=== PATIENT | female | born 1935 | race Caucasian/White ===

== ENCOUNTER 2017-01-07 17:09 | Inpatient (IN) | payer OTHER, MEDICAID ==
[~2017-01-07] VITALS: Ht 152.4 cm; Wt 47.6 kg
[~2017-01-07 17:09] MED LIST: ASPI-1063 PO; COLL30OI2 TP; DOCU250C PO; HYDR-4039 PO; MEGE400O PO; SENN-153 PO
[2017-01-07 17:12] VITALS: BP_SYST 154
[2017-01-07 18:25] LABS: HEMATOCRIT 27.2 % (36-48); HEMOGLOBIN 8.9 g/dL (12.0-16.0); MEAN CORPUSCULAR HEMOGLOBIN 33 pg (27-31); MEAN CORPUSCULAR HGB CONC 33 % (32-36); MEAN CORPUSCULAR VOLUME 102 fL (79.0-98.0); PLATELET COUNT (AUTO) 197 K/uL (130-430); RED BLOOD CELL COUNT(AUTO) 2.66 MIL/uL (4.2-6.2); RED CELL DISTRIBUTION WIDTH 15.6 % (9.0-15.0); WHITE BLOOD COUNT (AUTO) 19.7 K/uL (4.8-10.8)
[2017-01-07 18:37] LABS: ANION GAP 15 (5-15); CALCIUM 10.3 mg/dL (8.4-11.0); CHLORIDE 95 mmol/L (98-107); GLUCOSE 309 mg/dL (70-99); SODIUM SERUM 132 mmol/L (136-145); UREA NITROGEN, BLOOD 77 mg/dL (8-21)
[2017-01-07 18:39] LABS: INR 1.3 (0.8-1.2); PROTHROMBIN TIME 13.7 SECS (9.5-12.5)
[2017-01-07 18:42] LABS: ALANINE AMINOTRANSFERASE 20 U/L (12-78); ALBUMIN 2.5 g/dL (3.4-4.8); ASPARTATE AMINOTRANSFERASE 26 U/L (10-37); TOTAL BILIRUBIN 0.5 mg/dL (0.0-1.0)
[2017-01-07] MEDS ORDERED: cefTRIAXone 1 GM IVPB PREMIX 50 ML IV ONE (18:45)
[2017-01-07] MEDS ORDERED: KETOROLAC TROMETHAMINE 15 MG VIAL IVP ONE (18:45)
[2017-01-07 19:03] LABS: BILIRUBIN,URINE NEGATIVE (NEGATIVE); BLOOD, URINE 2+ (NEGATIVE); CLARITY/URINE CLOUDY (CLEAR); COLOR,URINE YELLOW (YELLOW); GLUCOSE,URINE 3+ (NEGATIVE); KETONES,URINE NEGATIVE (NEGATIVE); LEUKOCYTE ESTERASE ,URINE 2+ (NEGATIVE); NITRITE, URINE NEGATIVE (NEGATIVE); PH,URINE 7.5 (5.0-8.0); PROTEIN URINE 3+ (NEGATIVE); UROBILINOGEN,URINE 0.2 (0.2-1.0)
[2017-01-07 19:24] LABS: BAND % (MANUAL) 2 % (0-6); BASOPHILS % (MANUAL) 0 % (0-2); EOSINOPHILS % (MANUAL) 0 % (0-7); LYMPHOCYTES % (MANUAL) 5 % (20-46); MONOCYTES % (MANUAL) 5 % (0-11)
[2017-01-07] MEDS ORDERED: INSULIN ASPART 100 UNITS/ML, 10 ML VIAL SUBCUT ONE (19:45)
[2017-01-07 19:51] LABS: BACTERIA,URINE MANY /HPF (None Seen); WBC,URINE >100 /HPF (0-3)
[2017-01-07 19:52] LABS: MUCUS,URINE None Seen /LPF (None Seen)
[2017-01-07 21:16] VITALS: BP_SYST 161
[2017-01-07 21:18] VITALS: BP_SYST 161
[2017-01-07] MEDS: DOCUSATE SODIUM 250 MG CAPSULE PO SCH (21:45)
[2017-01-07] MEDS: SENNOSIDES 8.6 MG TABLET PO SCH (21:45)
[2017-01-07] MEDS: hydrALAZINE HCL 25 MG TABLET PO SCH (21:45)
[2017-01-07] MEDS: INSULIN ASPART 100 UNITS/ML, 10 ML VIAL (NovoLOG) SUBCUT PRN (22:04)
[2017-01-08] VITALS: BP_SYST 137
[2017-01-08 04:00] VITALS: BP_SYST 149
[2017-01-08] MEDS: INSULIN ASPART 100 UNITS/ML, 10 ML VIAL (NovoLOG) SUBCUT PRN (06:05)
[2017-01-08 06:32] LABS: HEMATOCRIT 23.3 % (36-48); HEMOGLOBIN 7.5 g/dL (12.0-16.0); MEAN CORPUSCULAR HEMOGLOBIN 33 pg (27-31); MEAN CORPUSCULAR HGB CONC 32 % (32-36); MEAN CORPUSCULAR VOLUME 102 fL (79.0-98.0); PLATELET COUNT (AUTO) 174 K/uL (130-430); RED BLOOD CELL COUNT(AUTO) 2.27 MIL/uL (4.2-6.2); RED CELL DISTRIBUTION WIDTH 15.7 % (9.0-15.0); WHITE BLOOD COUNT (AUTO) 18.9 K/uL (4.8-10.8)
[2017-01-08 07:19] LABS: ANION GAP 13 (5-15); CALCIUM 9.8 mg/dL (8.4-11.0); CHLORIDE 96 mmol/L (98-107); CREATININE 4.28 mg/dL (0.55-1.30); GLUCOSE 214 mg/dL (70-99); POTASSIUM 3.9 mmol/L (3.5-5.1); SODIUM SERUM 133 mmol/L (136-145); THYROID STIMULATING HORMONE 1.21 uIu/mL (0.34-4.82); UREA NITROGEN, BLOOD 81 mg/dL (8-21)
[2017-01-08 07:51] LABS: BAND % (MANUAL) 2 % (0-6); BASOPHILS % (MANUAL) 0 % (0-2); EOSINOPHILS % (MANUAL) 1 % (0-7); LYMPHOCYTES % (MANUAL) 5 % (20-46); MONOCYTES % (MANUAL) 4 % (0-11)
[2017-01-08 08:00] VITALS: BP_SYST 131
[2017-01-08] MEDS: hydrALAZINE HCL 25 MG TABLET PO SCH ×3 (09:00→21:22)
[2017-01-08] MEDS: DOCUSATE SODIUM 250 MG CAPSULE PO SCH ×2 (10:51→21:21)
[2017-01-08] MEDS ORDERED: cefTRIAXone 1 GM in D5W 50 ML IV ONE (11:00)
[2017-01-08 12:36] VITALS: BP_SYST 149
[2017-01-08] MEDS ORDERED: ACETAMINOPHEN 325 MG TABLET PO PRN (15:30)
[2017-01-08] MEDS ORDERED: VANCOMYCIN HCL 1 GM/NS PREMIX 250 ML IV ONE (16:00)
[2017-01-08 16:35] VITALS: BP_SYST 145
[2017-01-08] MEDS ORDERED: COMMUNICATION ORDER XX ONE (17:30)
[2017-01-08 20:00] VITALS: BP_SYST 139
[2017-01-08] MEDS: CLINDAMYCIN 600 MG in D5W 50 ML IV SCH (21:21)
[2017-01-08] MEDS: SENNOSIDES 8.6 MG TABLET PO SCH (21:23)
[2017-01-08] MEDS: HEPARIN SODIUM,PORCINE 5000 UNITS/ML VIAL SUBCUT SCH (21:27)
[2017-01-09] VITALS: BP_SYST 137
[2017-01-09 05:00] VITALS: BP_SYST 142
[2017-01-09 06:44] LABS: BASOPHILS % (AUTO) 0.2 % (0.0-2.0); EOSINOPHILS # (AUTO) 0.3 K/uL (0.0-0.4); EOSINOPHILS % (AUTO) 1.9 % (0.0-4.0); HEMATOCRIT 34.5 % (36-48); HEMOGLOBIN 11.1 g/dL (12.0-16.0); LYMPHOCYTES # (AUTO) 0.5 K/uL (1.0-5.5); MEAN CORPUSCULAR HEMOGLOBIN 31 pg (27-31); MEAN CORPUSCULAR HGB CONC 32 % (32-36); MEAN CORPUSCULAR VOLUME 97 fL (79.0-98.0); MONOCYTES # (AUTO) 0.5 K/uL (0.0-1.0); MONOCYTES % (AUTO) 3.5 % (1.7-9.3); NEUTROPHILS # (AUTO) 12.3 K/uL (1.8-7.7); NEUTROPHILS % (AUTO) 90.4 % (40.0-70.0); PLATELET COUNT (AUTO) 145 K/uL (130-430); RED BLOOD CELL COUNT(AUTO) 3.55 MIL/uL (4.2-6.2); RED CELL DISTRIBUTION WIDTH 18.9 % (9.0-15.0)
[2017-01-09 06:58] LABS: WHITE BLOOD COUNT (AUTO) 13.6 K/uL (4.8-10.8)
[2017-01-09 07:10] LABS: ALANINE AMINOTRANSFERASE 16 U/L (12-78); ALBUMIN 2.1 g/dL (3.4-4.8); ANION GAP 10 (5-15); ASPARTATE AMINOTRANSFERASE 21 U/L (10-37); CALCIUM 9.6 mg/dL (8.4-11.0); CHLORIDE 98 mmol/L (98-107); GLUCOSE 319 mg/dL (70-99); POTASSIUM 3.8 mmol/L (3.5-5.1); SODIUM SERUM 133 mmol/L (136-145); TOTAL BILIRUBIN 0.5 mg/dL (0.0-1.0); TOTAL PROTEIN, SERUM 6.5 g/dL (6.4-8.3); UREA NITROGEN, BLOOD 44 mg/dL (8-21)
[2017-01-09 08:00] VITALS: BP_SYST 170
[2017-01-09] MEDS ORDERED: APIDRA SUBCUT SCH (08:00)
[2017-01-09] MEDS: CLINDAMYCIN 600 MG in D5W 50 ML IV SCH ×2 (09:00→21:20)
[2017-01-09] MEDS: cefTRIAXone 1 GM in D5W 50 ML IV SCH (09:30)
[2017-01-09] MEDS: DOCUSATE SODIUM 250 MG CAPSULE PO SCH ×2 (09:35→21:16)
[2017-01-09] MEDS: hydrALAZINE HCL 25 MG TABLET PO SCH ×3 (09:35→21:16)
[2017-01-09] MEDS: ASPIRIN 81 MG TABLET(ECOTRIN) PO SCH (09:35)
[2017-01-09] MEDS: HEPARIN SODIUM,PORCINE 5000 UNITS/ML VIAL SUBCUT SCH ×2 (09:38→21:20)
[2017-01-09] MEDS ORDERED: COMMUNICATION ORDER XX ONE (11:45)
[2017-01-09 12:30] VITALS: BP_SYST 142
[2017-01-09] MEDS: INSULIN ASPART 100 UNITS/ML, 10 ML VIAL (NovoLOG) SUBCUT PRN ×2 (14:14→17:59)
[2017-01-09 15:33] VITALS: BP_SYST 170
[2017-01-09 20:00] VITALS: BP_SYST 160
[2017-01-09] MEDS: SENNOSIDES 8.6 MG TABLET PO SCH (21:16)
[2017-01-10 01:20] VITALS: BP_SYST 159
[2017-01-10 04:35] VITALS: BP_SYST 164
[2017-01-10 07:45] VITALS: BP_SYST 183
[2017-01-10] MEDS: hydrALAZINE HCL 25 MG TABLET PO SCH ×3 (09:00→22:13)
[2017-01-10] MEDS: ASPIRIN 81 MG TABLET(ECOTRIN) PO SCH (10:13)
[2017-01-10] MEDS: DOCUSATE SODIUM 250 MG CAPSULE PO SCH ×2 (10:13→21:15)
[2017-01-10] MEDS: CLINDAMYCIN 600 MG in D5W 50 ML IV SCH ×2 (10:14→21:10)
[2017-01-10] MEDS: cefTRIAXone 1 GM in D5W 50 ML IV SCH (10:14)
[2017-01-10] MEDS: HEPARIN SODIUM,PORCINE 5000 UNITS/ML VIAL SUBCUT SCH ×2 (10:18→21:26)
[2017-01-10 12:12] VITALS: BP_SYST 110
[2017-01-10] MEDS ORDERED: traMADol HCL HCL 50 MG TABLET (ULTRAM) PO PRN (15:30)
[2017-01-10 17:38] VITALS: BP_SYST 134
[2017-01-10 20:00] VITALS: BP_SYST 139
[2017-01-10] MEDS: SENNOSIDES 8.6 MG TABLET PO SCH (21:15)
[2017-01-11 01:04] VITALS: BP_SYST 151
[2017-01-11 05:07] VITALS: BP_SYST 139
[2017-01-11] MEDS: INSULIN ASPART 100 UNITS/ML, 10 ML VIAL (NovoLOG) SUBCUT PRN ×4 (06:11→21:20)
[2017-01-11 07:20] LABS: ALANINE AMINOTRANSFERASE 19 U/L (12-78); ALBUMIN 2.1 g/dL (3.4-4.8); ANION GAP 12 (5-15); ASPARTATE AMINOTRANSFERASE 24 U/L (10-37); CHLORIDE 96 mmol/L (98-107); CREATININE 2.42 mg/dL (0.55-1.30); GLUCOSE 212 mg/dL (70-99); POTASSIUM 3.6 mmol/L (3.5-5.1); SODIUM SERUM 135 mmol/L (136-145); TOTAL BILIRUBIN 0.5 mg/dL (0.0-1.0); TOTAL PROTEIN, SERUM 6.1 g/dL (6.4-8.3); UREA NITROGEN, BLOOD 36 mg/dL (8-21)
[2017-01-11 08:00] VITALS: BP_SYST 133
[2017-01-11] MEDS: hydrALAZINE HCL 25 MG TABLET PO SCH ×3 (08:19→21:11)
[2017-01-11] MEDS: DOCUSATE SODIUM 250 MG CAPSULE PO SCH ×2 (08:20→21:08)
[2017-01-11] MEDS: ASPIRIN 81 MG TABLET(ECOTRIN) PO SCH (08:20)
[2017-01-11] MEDS: HEPARIN SODIUM,PORCINE 5000 UNITS/ML VIAL SUBCUT SCH ×2 (08:22→21:10)
[2017-01-11] MEDS: cefTRIAXone 1 GM in D5W 50 ML IV SCH (08:24)
[2017-01-11] MEDS: CLINDAMYCIN 600 MG in D5W 50 ML IV SCH (09:18)
[2017-01-11 11:28] VITALS: BP_SYST 138
[2017-01-11 11:39] LABS: BASOPHILS % (AUTO) 0.3 % (0.0-2.0); EOSINOPHILS # (AUTO) 0.1 K/uL (0.0-0.4); EOSINOPHILS % (AUTO) 0.8 % (0.0-4.0); HEMATOCRIT 30.2 % (36-48); HEMOGLOBIN 9.9 g/dL (12.0-16.0); LYMPHOCYTES # (AUTO) 0.4 K/uL (1.0-5.5); LYMPHOCYTES % (AUTO) 2.6 % (20.5-51.5); MEAN CORPUSCULAR HEMOGLOBIN 32 pg (27-31); MEAN CORPUSCULAR HGB CONC 33 % (32-36); MEAN CORPUSCULAR VOLUME 96 fL (79.0-98.0); MONOCYTES # (AUTO) 0.8 K/uL (0.0-1.0); MONOCYTES % (AUTO) 5.4 % (1.7-9.3); NEUTROPHILS # (AUTO) 14.4 K/uL (1.8-7.7); PLATELET COUNT (AUTO) 138 K/uL (130-430); RED BLOOD CELL COUNT(AUTO) 3.14 MIL/uL (4.2-6.2); RED CELL DISTRIBUTION WIDTH 18.7 % (9.0-15.0); WHITE BLOOD COUNT (AUTO) 15.7 K/uL (4.8-10.8)
[2017-01-11 11:43] LABS: NEUTROPHILS % (AUTO) 90.9 % (40.0-70.0)
[2017-01-11] MEDS: AMPICILLIN SODIUM 1 GM in NS 50 ML IV SCH ×3 (12:23→23:15)
[2017-01-11 16:37] VITALS: BP_SYST 139
[2017-01-11 20:15] VITALS: BP_SYST 148
[2017-01-11] MEDS ORDERED: VANCOMYCIN HCL 1,000 MG in NS 250 ML IV SCH (21:00)
[2017-01-11] MEDS: SENNOSIDES 8.6 MG TABLET PO SCH (21:08)
[2017-01-12 00:51] VITALS: BP_SYST 143
[2017-01-12 04:00] VITALS: BP_SYST 160
[2017-01-12] MEDS: AMPICILLIN SODIUM 1 GM in NS 50 ML IV SCH ×3 (05:38→17:17)
[2017-01-12] MEDS: INSULIN ASPART 100 UNITS/ML, 10 ML VIAL (NovoLOG) SUBCUT PRN ×2 (05:47→22:07)
[2017-01-12 07:18] LABS: EOSINOPHILS # (AUTO) 0.1 K/uL (0.0-0.4); EOSINOPHILS % (AUTO) 0.7 % (0.0-4.0); HEMATOCRIT 29.2 % (36-48); HEMOGLOBIN 9.7 g/dL (12.0-16.0); LYMPHOCYTES # (AUTO) 0.6 K/uL (1.0-5.5); MEAN CORPUSCULAR HEMOGLOBIN 32 pg (27-31); MEAN CORPUSCULAR HGB CONC 33 % (32-36); MEAN CORPUSCULAR VOLUME 96 fL (79.0-98.0); MONOCYTES # (AUTO) 0.9 K/uL (0.0-1.0); MONOCYTES % (AUTO) 6.1 % (1.7-9.3); NEUTROPHILS # (AUTO) 13.2 K/uL (1.8-7.7); NEUTROPHILS % (AUTO) 89.2 % (40.0-70.0); PLATELET COUNT (AUTO) 155 K/uL (130-430); RED BLOOD CELL COUNT(AUTO) 3.05 MIL/uL (4.2-6.2); RED CELL DISTRIBUTION WIDTH 18.2 % (9.0-15.0); WHITE BLOOD COUNT (AUTO) 14.8 K/uL (4.8-10.8)
[2017-01-12 08:27] VITALS: BP_SYST 138
[2017-01-12] MEDS: hydrALAZINE HCL 25 MG TABLET PO SCH ×3 (09:00→22:10)
[2017-01-12] MEDS: HEPARIN SODIUM,PORCINE 5000 UNITS/ML VIAL SUBCUT SCH ×2 (09:00→21:59)
[2017-01-12] MEDS: cefTRIAXone 1 GM in D5W 50 ML IV SCH (09:50)
[2017-01-12] MEDS: DOCUSATE SODIUM 250 MG CAPSULE PO SCH ×2 (09:52→22:09)
[2017-01-12] MEDS: ASPIRIN 81 MG TABLET(ECOTRIN) PO SCH (09:53)
[2017-01-12] MEDS ORDERED: CARVEDILOL 6.25 MG TABLET (COREG) PO ONE (11:30)
[2017-01-12 12:00] VITALS: BP_SYST 119
[2017-01-12] MEDS ORDERED: DILTIAZEM HCL 25 MG/5 ML VIAL IVP ONE (12:30)
[2017-01-12] MEDS ORDERED: AMIODARONE HCL 200 MG TABLET PO ONE ×2 (12:30→16:30)
[2017-01-12 16:47] VITALS: BP_SYST 139
[2017-01-12 20:31] VITALS: BP_SYST 155
[2017-01-12] MEDS: SENNOSIDES 8.6 MG TABLET PO SCH (22:08)
[2017-01-12] MEDS: CARVEDILOL 6.25 MG TABLET (COREG) PO SCH (22:09)
[2017-01-13] VITALS: BP_SYST 145
[2017-01-13] MEDS: AMPICILLIN SODIUM 1 GM in NS 50 ML IV SCH ×4 (01:07→17:27)
[2017-01-13 04:00] VITALS: BP_SYST 154
[2017-01-13] MEDS: INSULIN ASPART 100 UNITS/ML, 10 ML VIAL (NovoLOG) SUBCUT PRN ×2 (06:45→17:41)
[2017-01-13 08:15] VITALS: BP_SYST 143
[2017-01-13] MEDS: cefTRIAXone 1 GM in D5W 50 ML IV SCH (08:39)
[2017-01-13] MEDS: ASPIRIN 81 MG TABLET(ECOTRIN) PO SCH (08:40)
[2017-01-13] MEDS: hydrALAZINE HCL 25 MG TABLET PO SCH ×2 (08:40→15:07)
[2017-01-13] MEDS: CARVEDILOL 6.25 MG TABLET (COREG) PO SCH ×2 (08:40→09:00)
[2017-01-13] MEDS: HEPARIN SODIUM,PORCINE 5000 UNITS/ML VIAL SUBCUT SCH (08:43)
[2017-01-13] MEDS: DOCUSATE SODIUM 250 MG CAPSULE PO SCH (08:44)
[2017-01-13 12:00] VITALS: BP_SYST 144
[2017-01-13] MEDS ORDERED: AMPI1VIA6 (13:41)
[2017-01-13] MEDS ORDERED: CIPR-261 PO (13:42)
[2017-01-13] MEDS ORDERED: COLL30OI2 TP (13:43)
[2017-01-13 13:45] VITALS: BP_SYST 144
[2017-01-13 17:29] VITALS: BP_SYST 167
== END 2017-01-13 21:05 | disposition home health service (06) | DRG 314 ==
LOC: SED 17:09 → STU 20:25
PROVIDERS: ADMIT Internal Medicine; ATTEND Internal Medicine
PROC: 5A1D60Z (ICD-10-PCS; principal; 2017-01-08)
PROC: 30233N1 Transfusion of Nonautologous Red Blood Cells into Peripheral Vein, Percutaneous Approach (ICD-10-PCS; 2017-01-08)
DX: T80.211A Bloodstream infection due to central venous catheter, initial encounter (principal); A41.2 Sepsis due to unspecified staphylococcus; N18.6 End stage renal disease; E43 Unspecified severe protein-calorie malnutrition; N39.0 Urinary tract infection, site not specified; I13.2 Hypertensive heart and chronic kidney disease with heart failure and with stage 5 chronic kidney disease, or end stage renal disease; D63.1 Anemia in chronic kidney disease; E11.22 Type 2 diabetes mellitus with diabetic chronic kidney disease; E11.51 Type 2 diabetes mellitus with diabetic peripheral angiopathy without gangrene; E11.65 Type 2 diabetes mellitus with hyperglycemia; F02.80 Dementia in other diseases classified elsewhere, unspecified severity, without behavioral disturbance, psychotic disturbance, mood disturbance, and anxiety; G20 Parkinson's disease; G30.9 Alzheimer's disease, unspecified; I50.9 Heart failure, unspecified; L89.159 Pressure ulcer of sacral region, unspecified stage; M19.90 Unspecified osteoarthritis, unspecified site; Y84.8 Other medical procedures as the cause of abnormal reaction of the patient, or of later complication, without mention of misadventure at the time of the procedure; R54 Age-related physical debility; I48.0 Paroxysmal atrial fibrillation; Z99.2 Dependence on renal dialysis; Z79.82 Long term (current) use of aspirin; Z88.8 Allergy status to other drugs, medicaments and biological substances; Z79.4 Long term (current) use of insulin; Z79.899 Other long term (current) drug therapy; Z68.20 Body mass index [BMI] 20.0-20.9, adult
CPT/HCPCS: 36415; 71010; 80048; 80053; 81000-TC; 82962; 83036; 83605; 83880; 84443-TC; 85007; 85025; 85027; 85610-TC; 85651-TC; 85730-TC; 86886; 86900; 86901; 86920; 87040-TC; 87081; 87086; 87186-TC; 90935; 90937; 93005; 93306; 96365; 96375; 97110-GP; 97530-GP; 99285; J0290; J0696; J1644; J1815; J1885; J3370; J3490; J7030; J7040; J7050; J7060; P9021